=== PATIENT | female | born 1980 | race Caucasian/White ===

== ENCOUNTER 2022-02-05 10:01 | Emergency (ER) | payer BC ==
[~2022-02-05] VITALS: Ht 157.5 cm; Wt 118.2 kg
[2022-02-05 10:04] VITALS: TEMP 97.7
[2022-02-05] MEDS ORDERED: NORCO 325 MG-51 TAB PO (11:48)
[2022-02-05 12:37] VITALS: BP 116/105; PULSE 70
== END 2022-02-05 12:37 | disposition home or self-care (01) ==
LOC: COL.ER 10:01
DX: S93.402A Sprain of unspecified ligament of left ankle, initial encounter (principal); F17.290 Nicotine dependence, other tobacco product, uncomplicated; X50.1XXA Overexertion from prolonged static or awkward postures, initial encounter
CPT/HCPCS: J1170